=== PATIENT | female | born 1950 | race Caucasian/White ===

== ENCOUNTER 2017-01-03 07:47 | Inpatient (IN) | payer OTHER ==
[~2017-01-03] VITALS: Ht 162.6 cm; Wt 67.1 kg
[~2017-01-03 07:47] MED LIST: BENZONATATE100 M1 PO; HYDROCHLOROTH12.5 M3 PO; IBUPROFEN800 M1 PO; MONTELUKAST SOD10 M1 PO; MOXIFLOXACIN H400 M2 PO; PREDNISONE10 M2 PO; PREDNISONE20 M1 PO; PROAIR HFA8.5 GM INH; PROMETHAZINE-C118 ML PO; SIMVASTATIN10 M1 PO; SPIRIVA18 MCG INH; SYMBICORT 16010.2 GM INH; SYMBICORT 80-10.2 GM INH; ULTRAM(MONOGRAP50 MG PO; VITAMIN D250000 UNIT PO
--- NOTE | 2017-01-03 07:54 | NUR ---
PT TO ED WITH C/O URI, SOB AND COUGH X 6 MONTHS, SAW PMD DR PIKE, AND THEN SAW DR LEMUS FOR A CHECK UP AND WAS SENT FOR CHEST CT "WHICH SHOWED NOTHING, AND HE SAID I'LL SEE YOU IN 6 MONTHS". PER PT TAKING INHALERS PRESCRIBED, AND USING NEBULIZER TWICE DAILY. DENIES FEVERS.
--- NOTE | 2017-01-03 07:57 | ED GENERAL ADULT ---
History of Present Illness General Chief Complaint: Upper Respiratory Sx/Fever Stated Complaint: URI X 1DY HX OF COPD Source: patient Exam Limitations: no limitations Vital Signs & Intake/Output Vital Signs & Intake/Output Vital Signs Date Time Temp Pulse Resp B/P Pulse O2 O2 Flow FiO2 Ox Delivery Rate 01/04 0811 96 Nasal 2.0L Cannula 01/04 0800 Nasal 2.0L Cannula 01/04 0800 98.0 87 20 108/58 95 Nasal 2.0L Cannula 01/04 0000 Nasal 2.0L Cannula 01/03 2357 98.7 105 20 116/52 96 Nasal 2.0L Cannula 01/03 1729 98.5 97 18 117/61 94 01/03 1651 93 Nasal 2.0L Cannula 01/03 1648 Nasal 2.0L Cannula 01/03 1600 Nasal 2.0L Cannula 01/03 1415 94 Nasal 2.0L Cannula 01/03 1337 98.2 102 18 132/82 94 Nasal 2.0L Cannula 01/03 1226 99.8 92 18 110/68 92 Nasal 2.0L Cannula ED Intake and Output 01/04 0000 01/03 1200 Intake Total Output Total 350 Balance -350 Output, Urine 350 Patient 148 lb 149 lb Weight Allergies Coded Allergies: Penicillins (Severe, ANAPHYLAXIS 05/25/16) Reconcile Medications Albuterol Sulfate (Proair Hfa) 8.5 GM HFA.AER.AD 2 PUF INH Q4-6 PRN PRN COPD (Reported) Aspirin (Aspirin*) 81 MG TAB.CHEW 1 TAB PO Q48 BLOOD THINNER (Reported) Azithromycin (Zithromax) 250 MG TABLET 1 TAB PO Q48 COPD (Reported) RESTART ON 01/08/17 Azithromycin 250 MG TABLET 1 TAB PO DAILY COPD EXACERBATION LAST DOSE ON 01/07/17 Budesonide/Formoterol Fumarate (Symbicort 160-4.5 Mcg Inhaler) 10.2 GM HFA.AER.AD 2 PUF INH BID COPD Esomeprazole (Nexium) 40 MG CAPSULE.DR 1 CAP PO DAILY GERD (Reported) Hydrochlorothiazide 12.5 MG CAPSULE 1 CAP PO DAILY HTN (Reported) Montelukast Sodium 10 MG TABLET 1 TAB PO DAILY COPD (Reported) Prednisone 10 MG TABLET 0 PO TAPER COPD On Take 01/05-01/06 50 MG 01/07-2/8 40 MG 01/09-01/10 30 MG 01/11-01/12 20 MG 01/13-01/14 10 MG Then Stop Simvastatin (Simvastatin*) 10 MG TABLET 1 TAB PO QPM HYPERLIPIDEMIA (Reported ) Tiotropium [place] (Spiriva) 18 MCG CAP.W.DEV 1 CAP INH DAILY COPD Triage Note: PT TO ED WITH C/O URI, SOB AND COUGH X 6 MONTHS, SAW PMD DR PIKE, AND THEN SAW DR JACOB FOR A CHECK UP AND WAS SENT FOR CHEST CT "WHICH SHOWED NOTHING, AND HE SAID I'LL SEE YOU IN 6 MONTHS". PER PT TAKING INHALERS PRESCRIBED, AND USING NEBULIZER TWICE DAILY. DENIES FEVERS. Triage Nurses Notes Reviewed? yes Onset: Abrupt Duration: hour(s): Timing: recent history HPI: 01/03/17 8:10 AM 66-year-old female presents to the emergency department complaining of difficulty breathing. The patient states she was in her usual state of health until early this morning when she developed difficulty breathing. She says her oxygen saturation was 77%. She says she has a history of severe COPD. She uses Spiriva. She is on home nebulizer treatments. She is not on prednisone currently. She is on home O2 as needed. She says she recently saw Dr. Jacob last week and had a noncontrast CAT scan that was unremarkable. She denies fever but admits to feeling warm. The onset of symptoms were abrupt, the duration of the symptoms was just today, the severity of the symptoms are significant; as her symptoms required to come to the emergency department for care. She admits to associated difficulty breathing and cough. No chest pain. Past History Travel History Traveled to [place] past 21 day No Medical History Any Pertinent Medical History? see below for history Neurological: NONE EENT: NONE Cardiovascular: hypertension, HLP Respiratory: COPD Gastrointestinal: NONE Hepatic: NONE Renal: NONE Musculoskeletal: NONE Psychiatric: NONE Endocrine: BORDERLINE DIABETIC Blood Disorders: NONE Cancer(s): NONE RN PATIENT SERVICES/Reproductive: NONE History of MRSA: No History of VRE: No History of CDIFF: No Pneumonia Vaccine: 01/05/13 Surgical History Surgical History: non-contributory Psychosocial History Who do you live with Patient/Self Services at Home None What is your primary language Thai Tobacco Use: Quit >30 days ago ETOH Use: denies use Illicit Drug Use: denies illicit drug use Family History Family History, If Any: MOTHER (PULMONARY FIBROSIS). FATHER (RENAL CELL CARCONIMA). Hx Contributory? No Review of Systems Review of Systems Constitutional: Denies: fever. EENTM: Reports: no symptoms. Respiratory: Reports: cough, short of breath, sputum production. Cardiovascular: Denies: chest pain. GI: Reports: no symptoms. Genitourinary: Reports: no symptoms. Musculoskeletal: Reports: no symptoms. Skin: Reports: no symptoms. Neurological/Psychological: Reports: no symptoms. Hematologic/Endocrine: Reports: no symptoms. Immunologic/Allergic: Reports: no symptoms. Physical Exam Physical Exam General Appearance: alert, awake, anxious, moderate distress Head: atraumatic, normal appearance Eyes: Bilateral: normal appearance, PERRL, EOMI. Ears, Nose, Throat: normal ENT inspection Neck: normal inspection Respiratory: decreased breath sounds, respiratory distress Cardiovascular: regular rate/rhythm Gastrointestinal: non-tender Back: normal range of motion Extremities: no edema Neurologic/Psych: no motor/sensory deficits, awake, alert, oriented x 3 Skin: intact, normal color, warm/dry Core Measures ACS in differential dx? No CVA/TIA Diagnosis: No Severe Sepsis Present: No Septic Shock Present: No Progress Differential Diagnoses I considered the following diagnoses in my evaluation of the patient: [ Exacerbation of COPD, pneumonia, bronchitis, pulmonary embolism, congestive heart failure, pneumothorax] Plan of Care: Orders Procedure Date/time Status CBC WITHOUT DIFFERENTIAL 01/04 0600 Complete BASIC ELECTROLYTES PLUS BUN&CR 01/04 0600 Complete Heart Healthy Diet 01/03 D Active RT: Reevaluation 01/03 1416 Active RT: Evaluation 01/03 1416 Active Vital Signs 01/03 1330 Active Teach/Educate 01/03 1330 Active Nutritional Intake, Monitor 01/03 1330 Active Isolation 01/03 1330 Active Intake & Output 01/03 1330 Active Patient Care Conference 01/03 1330 Active Activity/Ambulation 01/03 1330 Active Intake & Output 01/03 1223 Active LOWER RESPIRATORY CULTURE 01/03 1214 Active FingerStick- Glucose 01/03 1156 Active Pathway - chart 01/03 1148 Active Patient Data 01/03 1148 Active CULTURE,URINE 01/03 1148 Active STREP PNEUMO URINARY ANTIGEN 01/03 1148 Active LEGIONELLA URINARY ANTIGEN 01/03 1148 Active BLOOD CULTURE 01/03 1148 Active URINALYSIS 01/03 1148 Complete Admit to inpatient 01/03 1140 Active Vital Signs 01/03 1140 Active Code Status 01/03 1140 Active Patient Data 01/03 1126 Active TRC EVALUATION (GEN) 01/03 UNK Complete THERAPIST ORDERS 01/03 UNK Complete OXYGEN SETUP (GEN) 01/03 UNK Active House Staff 01/03 UNK Active Anticipated Discharge 01/03 UNK Active VTE Mechanical Prophylaxis 01/03 UNK Active Vital Signs 01/03 UNK Complete Current Medications Sig/Loulou Start time Last Medication Dose Stop Time Status Admin Aspirin 81 MG Q48 01/05 1000 AC (Aspirin) Budesonide/ 2 PUF BID 01/03 2200 CAN Formoterol Fumarate (Symbicort) Methylprednisolone 40 MG Q12 01/03 2200 CAN (Solumedrol) Albuterol Sulfate 2 PUF Q4-6 PRN PRN 01/03 1200 AC (Ventolin) Guaifenesin 10 ML Q6P PRN 01/03 1145 AC (Robitussin) Laboratory Tests 01/04/17 0700: Anion Gap 8, Estimated GFR > 60, BUN/Creatinine Ratio 35.0 H, CBC w Diff NO MAN DIFF REQ, RBC 4.07 L, MCV 90.6, MCH 30.7, RDW 13.0, MPV 8.0, Gran % 74.8, Lymphocytes % 14.8 L, Monocytes % 9.7 H, Eosinophils % 0.1, Basophils % 0.6, Absolute Granulocytes 4.2, Absolute Lymphocytes 0.8 L, Absolute Monocytes 0.6, Absolute Eosinophils 0, Absolute Basophils 0, PUBS MCHC 33.9 01/03/17 1216: Urine Color STRAW, Urine Clarity CLEAR, Urine pH 6.0, Ur Specific [place] 1.010, Urine Protein NEG, Urine Ketones NEG, Urine Nitrite NEG, Urine Bilirubin NEG, Urine Urobilinogen 0.2, Ur Leukocyte Esterase NEG, Ur Microscopic EXAM NOT REQUIRED, Urine Hemoglobin NEG, Urine Glucose NEG Microbiology 01/03 1216 URINE ROUT: Legionella Antigen - RES 01/03 1216 URINE ROUT: Streptococcus pneumoniae Antigen (M - RES 01/03 1216 URINE ROUT: Urine Culture - RES 01/03 1216 BLOOD: Blood Culture - RECD 01/03 1214 LOWER RESP: Respiratory Culture - COLB 01/03 1214 LOWER RESP: Gram Stain - COLB 01/03 1213 BLOOD: Blood Culture - RECD Initial ED EKG: nonspecific ST T wave chg Departure Departure Disposition: STILL A PATIENT Condition: Stable Clinical Impression Primary Impression: Asthma exacerbation in COPD Referrals: ARTEMIO PIKE MD (PCP/Family) Departure Forms: Customer Survey General Discharge Information Prescriptions: Current Visit Scripts Azithromycin 1 TAB PO DAILY #3 TAB LAST DOSE ON 01/07/17 Prednisone 0 PO TAPER #30 On Take 01/05-01/06 50 MG 01/07-01/08 40 MG 01/09-01/10 30 MG 01/11-01/12 20 MG 01/13-01/14 10 MG Then Stop Admission Note Spoke With: SRIDEVI COLLINS MD Documentation of Exam: Documentation of any treatments & extenuating circumstances including Concerns Regarding Discharge (functional status, medication knowledge or non-compliance, living conditions, etc.) that warrant an admission rather than observation: The patient needs admission for IV steroids, nebulizer treatments every 4 hours, pulmonary consultation, oxygen therapy] Critical Care Note Critical Care Note Critical Care Time: 30-74 min
--- NOTE | 2017-01-03 08:11 | NUR ---
XRAY AT BEDSIDE AT THIS TIME RESP PAGED FOR TREATMENT
--- NOTE | 2017-01-03 08:22 | NUR ---
IV EST. PT MEDICATED WITH SOLUMEDROL PER ORDER AT THIS TIME. RESP TREATMENT IN PROGRESS.
[2017-01-03 08:29] LABS: ABSOLUTE BASOPHIL COUNT 0 /CUMM (0.0-0.2); ABSOLUTE EOSINOPHIL COUNT 0.1 /CUMM (0.0-0.7); ABSOLUTE GRANULOCYTE CT 3.4 /CUMM (1.4-6.5); ABSOLUTE LYMPH COUNT 0.4 /CUMM (1.2-3.4); ABSOLUTE MONOCYTE COUNT 0.4 /CUMM (0.10-0.60); BASOPHIL % 0.5 % (0.0-2.0); EOSINOPHIL % 1.3 % (0-5); GRANULOCYTE % 78.8 % (42.2-75.2); HEMATOCRIT 38.2 % (37-47); MEAN CORPUSCULAR HGB 31.4 PG (27.0-31.0); MEAN CORPUSCULAR HGB CONC 34.9 G/DL (33.0-37.0); MEAN CORPUSCULAR VOLUME 89.8 FL (81.0-99.0); MEAN PLATELET VOLUME 7.3 FL (7.4-10.4); PLATELET COUNT 154 /CUMM (130-400); RBC DISTRIBUTION WIDTH 12.9 % (11.5-14.5); RED BLOOD CELL CT 4.25 /CUMM (4.20-5.40); WHITE BLOOD CELL COUNT 4.3 /CUMM (4.8-10.8)
--- NOTE | 2017-01-03 08:35 | RADIOLOGY REPORT ---
EXAMINATION: XR PORTABLE CHEST CLINICAL INFORMATION: Shortness of breath. Evaluate for pneumonia. COMPARISON: CT scan of the chest 12/21/2016. TECHNIQUE: AP portable upright view of the chest was obtained. FINDINGS: Lungs are clear and well expanded. There is no focal consolidative disease, pleural effusion, or pneumothorax. The cardiac silhouette and upper mediastinal contours are normal. No acute osseous finding. IMPRESSION: Unremarkable examination. No consolidative disease or effusion.
--- NOTE | 2017-01-03 09:19 | NUR ---
PT STATES SHE IS FEELING SLIGHTLY BETTER AFTER BREATHING TREATMENT BUT STILL NOT "BETTER"
--- NOTE | 2017-01-03 09:20 | NUR ---
DR CHRISTY AT BEDSIDE FOR REEVAL
--- NOTE | 2017-01-03 09:40 | NUR ---
RESP PAGED FOR ANOTHER BREATHING TREATMENT AT THIS TIME.
--- NOTE | 2017-01-03 09:45 | NUR ---
FLU SWAB OBTAIEND AND SENT TO LAB RESP AT BEDSIDE FOR TREATMENT
--- NOTE | 2017-01-03 10:28 | NUR ---
PT 02 SATS 88-89%, PLACED ON 2L NC PER DR CHRISTY REQUEST. PT 02 CURRENTLY 95%.
--- NOTE | 2017-01-03 11:13 | NUR ---
PT REMAINS RESTING ON STRETCHER, SATS REMAINS 95-96% ON 2L NC AT THIS TIME.
--- NOTE | 2017-01-03 11:48 | NUR ---
HEART HEALTHY TRAY ORDERED FOR PT AT THIS TIME.
--- NOTE | 2017-01-03 11:49 | NUR ---
HOUSE STAFF AT BEDSIDE FOR EVAL
[2017-01-03] MEDS ORDERED: ASPIRIN81 M4 PO (11:51)
[2017-01-03] MEDS ORDERED: NEXIUM40 M1 PO (11:52)
[2017-01-03] MEDS ORDERED: ZITHROMAX250 M2 PO (11:52)
--- NOTE | 2017-01-03 11:55 | NUR ---
PHARMACY CALLED FOR MEDICATIONS AT THIS TIMED
--- NOTE | 2017-01-03 12:02 | History & Physical ---
JUAN DE LA TORRE,HAKEEM 01/03/17 1201: General Information and HPI MD Statement: I have seen and personally examined DENNY BLAKELY and documented this H& P. The patient is a 66 year old F who presented with a patient stated chief complaint of [SOB]. Source of Information: patient, old records Exam Limitations: no limitations History of Present Illness: There is a 66-year-old lady with a 50+ pack year smoking history who quit over 4 years ago, a history of COPD/emphysema and is supposed to use 2 L of nasal cannula continuous oxygen at home however noncompliant, history of hypertension, hyperlipidemia, GERD that presented to the emergency room today complaining of acute shortness of breath. While in the emergency room she was found to be hypoxic at 77%. States that over the course of last couple of days she has been sneezing, has had a yellow purulent cough which is her baseline, she used her nebulizer yesterday when she felt short of breath in the evening and went to bed. She woke up this morning with persistent shortness of breath, used her nebulizer treatment again and her inhalers however her symptoms did not alleviated. She subsequently came to the emergency room. As mentioned above in the emergency room she was found to be hypoxic at 77%, she is currently resting comfortably in her hospital bed on 2 L nasal cannula saturating 92%, she has thus far received IV Solu-Medrol, and a couple of breathing treatments. States that her shortness of breath is markedly improved. Allergies/Medications Allergies: Coded Allergies: Penicillins (Severe, ANAPHYLAXIS 05/25/16) Home Med list Albuterol Sulfate (Proair Hfa) 8.5 GM HFA.AER.AD 2 PUF INH Q4-6 PRN PRN COPD (Reported) Aspirin (Aspirin*) 81 MG TAB.CHEW 1 TAB PO Q48 BLOOD THINNER (Reported) Azithromycin (Zithromax) 250 MG TABLET 1 TAB PO Q48 COPD (Reported) Budesonide/Formoterol Fumarate (Symbicort 160-4.5 Mcg Inhaler) 10.2 GM HFA.AER.AD 2 PUF INH BID COPD Esomeprazole (Nexium) 40 MG CAPSULE.DR 1 CAP PO DAILY GERD (Reported) Hydrochlorothiazide 12.5 MG CAPSULE 1 CAP PO DAILY HTN (Reported) Montelukast Sodium 10 MG TABLET 1 TAB PO DAILY COPD (Reported) Simvastatin (Simvastatin*) 10 MG TABLET 1 TAB PO QPM HYPERLIPIDEMIA (Reported ) Tiotropium [place] (Spiriva) 18 MCG CAP.W.DEV 1 CAP INH DAILY COPD Past History Travel History Traveled to [place] past 21 day No Medical History Neurological: NONE EENT: NONE Cardiovascular: hypertension, HLP Respiratory: COPD Gastrointestinal: NONE Hepatic: NONE Renal: NONE Musculoskeletal: NONE Psychiatric: NONE Endocrine: BORDERLINE DIABETIC Blood Disorders: NONE Cancer(s): NONE DIRECTOR OF EVENT MARKETING/Reproductive: NONE History of MRSA: No History of VRE: No History of CDIFF: No Pneumonia Vaccine: 01/05/13 Surgical History Surgical History: non-contributory Past Family/Social History Family History Relations & Conditions if any MOTHER (PULMONARY FIBROSIS). FATHER (RENAL CELL CARCONIMA). Psychosocial History Services at Home: None Smoking Status: Former Smoker (50+ pack yr hx) ETOH Use: denies use Illicit Drug Use: denies illicit drug use Functional Ability ADLs Independent: dressing, eating, toileting, bathing. IADLs Independent: shopping, housework, finances, food prep, telephone, transportation , medication admin. Review of Systems Review of Systems Constitutional: Reports: see HPI. Exam & Diagnostic Data Last 24 Hrs of Vital Signs/I&O Vital Signs Date Time Temp Pulse Resp B/P Pulse O2 O2 Flow FiO2 Ox Delivery Rate 01/03 1019 99.6 102 20 109/73 92 Nasal 2.0L Cannula 01/03 0949 91 01/03 0820 93 01/03 0818 91 01/03 0753 98.2 108 20 138/82 93 Room Air Room Air Intake & Output 01/03 1600 01/03 0800 01/03 0000 Intake Total Output Total Balance Patient 149 lb Weight Physical Exam General Appearance Alert, Oriented X3, Cooperative, No Acute Distress Skin No Rashes, No Breakdown HEENT Atraumatic, PERRLA, EOMI Cardiovascular Regular Rate, Normal S1, Normal S2 Lungs Normal Air Movement, faint wheezing b/l Abdomen Normal Bowel Sounds, Soft, No Tenderness Neurological Normal Speech, Strength at 5/5 X4 Ext, Normal Tone, Sensation Intact, Cranial Nerves 3-12 NL, Reflexes 2+ Extremities No Clubbing, No Cyanosis, No Edema Last 24 Hrs of Labs/[place]: Laboratory Tests 01/03/17 0817: Anion Gap 9, Estimated GFR > 60, BUN/Creatinine Ratio 23.3, Glucose 107 H, Calcium 9.1, Total Bilirubin 0.6, AST 23, ALT 36, Alkaline Phosphatase 73, Troponin I < 0.01, Total Protein 6.8, Albumin 4.1, Globulin 2.7, Albumin/ Globulin Ratio 1.5, D-Dimer 215, CBC w Diff NO MAN DIFF REQ, RBC 4.25, MCV 89.8, MCH 31.4 H, RDW 12.9, MPV 7.3 L, Gran % 78.8 H, Lymphocytes % 10.4 L, Monocytes % 9.0, Eosinophils % 1.3, Basophils % 0.5, Absolute Granulocytes 3.4, Absolute Lymphocytes 0.4 L, Absolute Monocytes 0.4, Absolute Eosinophils 0.1, Absolute Basophils 0, PUBS MCHC 34.9 Microbiology 01/03 114 URINE ROUT: Legionella Antigen - ORD 01/03 114 URINE ROUT: Streptococcus pneumoniae Antigen (M - ORD 01/03 114 URINE ROUT: Urine Culture - ORD 01/03 1148 BLOOD: Blood Culture - ORD 01/03 1148 BLOOD: Blood Culture - ORD Diagnostic Data EKG Results Rate 103, AL 176, QRS 82, QTC 451 Sinus tachycardia, no significant changes in EKG since prior tracing CXR Results PATIENT: DENNY BLAKELY PRESENT AGE: 66 PATIENT ACCOUNT NO: [id number] : 52 LOCATION: [facility] ORDERING PHYSICIAN: VIJAYA CHRISTY DO SERVICE DATE: 01/03/17 EXAM TYPE: RAD - XRY-PORTABLE CHEST XRAY EXAMINATION: XR PORTABLE CHEST CLINICAL INFORMATION: Shortness of breath. Evaluate for pneumonia. COMPARISON: CT scan of the chest 12/21/2016. TECHNIQUE: AP portable upright view of the chest was obtained. FINDINGS: Lungs are clear and well expanded. There is no focal consolidative disease, pleural effusion, or pneumothorax. The cardiac silhouette and upper mediastinal contours are normal. No acute osseous finding. IMPRESSION: Unremarkable examination. No consolidative disease or effusion. DICTATED BY: PAT ACKERMAN MD DATE/TIME DICTATED:01/03/17817 WORKFORCE ADVISOR:DEUCE DATE/TIME TRANSCRIBED:01/03/17817 CONFIDENTIAL, DO NOT COPY WITHOUT APPROPRIATE AUTHORIZATION. <Electronically signed in Other Vendor System> SIGNED BY: MEKA DE LA TORRE,PAT Sanchez 01/03 0844 Assessment/Plan Assessment: In summary, this is a 66-year-old lady with a past medical history significant for COPD, 2 L home oxygen dependent however noncompliant with this, hypertension , hyperlipidemia, GERD that presented to the emergency room with acute shortness of breath and found to be in hypoxic respiratory failure with initial oxygen saturation 77%. Since her admission to the emergency room she is received IV steroids and nebulizer treatment with rapid alleviation of her symptoms. She'll be admitted to general medicine floor for the same. Assessment- 1. Acute hypoxic respiratory failure, likely secondary to COPD exacerbation, oxygen saturation 77% on presentation to the ER 2. Dyspnea, secondary to COPD exacerbation 3. Hypertension 4. Hyperlipidemia 5. GERD Plan- Admit to general med Vitals per protocol Titrate supplemental oxygen to keep oxygen saturation between 90 and 93% TRC evaluation and nebs IV Solu-Medrol 40 twice a day By mouth azithromycin 5 days Panculture Continue montelukast Continue Symbicort and Spiriva Continue all her other home meds Heart healthy diet Will consider pulmonary consult, Parth Jacob MD is her principal ios developer Mild pain when necessary pathway DVT prophylaxis being addressed with subcutaneous heparin Full code As Ranked By This Provider Problem List: 1. COPD exacerbation 2. Hypoxia 3. emphysema 4. Essential hypertension Core Measures/Miscellaneous Acute Coronary Syndrome ACS Diagnosis: No Cerebrovascular Accident CVA/TIA Diagnosis: No Congestive Heart Failure CHF Diagnosis: No Venous Thromboembolism VTE Risk Factors: Age > 40, Smoking VTE Prophylaxis Ordered Inpt: Pharm- Heparin No Mech VTE prophylaxis d/t: No contraindications No VTE Pharm Prophylaxis d/t: VTE low risk VTE Diagnosis: No VTE Type: NONE VTE Confirmed by (Test): NONE Severe Sepsis Severe Sepsis Present: No Septic Shock Septic Shock Present: No Miscellaneous Documentation Attending Case Discussed With: Dr. Burch Primary Care Physician: ARTEMIO PIKE MD Patient sees these Specialists Dr. Jacob Level of Patient Care: General Medicine Resident Review Statement Resident Statement: examined this patient, discussed with internet merchant JOSE BURCH MD 01/03/17 1420: Attending Review Statement Attending Statement Attending MD Statement: examined this patient, discuss w/resident/PA/WOMEN'S SOCCER COACH, agreed w/resident/PA/WOMEN'S SOCCER COACH, reviewed EMR data (avail), discussed with nursing, discussed with case mgmt, reviewed images, amended to note Attending Assessment/Plan: 66-year-old female with past medical history significant for COPD on when necessary oxygen dependent at 2 L, hypertension, hyperlipidemia who is presenting with increasing shortness of breath. Symptoms started yesterday with some chills. She has been having more trouble breathing both at rest and on exertion. She is coughing but denies any change in the color of her sputum. She denies any fevers. 2 weeks ago she had a cold. In the emergency room patient was found to be hypoxic and required oxygen. She required nebulizer treatments as well as Solu-Medrol. She denies any sick exposures. She is up-to -date with her pneumonia as well as flu vaccines. Vital Signs Date Time Temp Pulse Resp B/P Pulse O2 O2 Flow FiO2 Ox Delivery Rate 01/03 1337 98.2 102 18 132/82 94 Nasal 2.0L Cannula 01/03 1226 99.8 92 18 110/68 92 Nasal 2.0L Cannula 01/03 1019 99.6 102 20 109/73 92 Nasal 2.0L Cannula 01/03 0949 91 01/03 0820 93 01/03 0818 91 01/03 0753 98.2 108 20 138/82 93 Room Air Room Air on exam; aox3, nad. cv; s1, s2, rrr. resp; decreased bs b/l abd; soft, nt, bs+ ext; no edema. Laboratory Tests 01/03 01/03 1216 0817 Chemistry Sodium (137 - 145 mmol/L) 137 Potassium (3.5 - 5.1 mmol/L) 3.9 Chloride (98 - 107 mmol/L) 102 Carbon Dioxide (22 - 30 mmol/L) 26 Anion Gap (5 - 16) 9 BUN (7 - 17 mg/dL) 14 Creatinine (0.5 - 1.0 mg/dL) 0.6 Estimated GFR (>60 ml/min) > 60 BUN/Creatinine Ratio (7 - 25 %) 23.3 Glucose (65 - 99 mg/dL) 107 H Calcium (8.4 - 10.2 mg/dL) 9.1 Total Bilirubin (0.2 - 1.3 mg/dL) 0.6 AST (14 - 36 U/L) 23 ALT (9 - 52 U/L) 36 Alkaline Phosphatase (<127 U/L) 73 Troponin I (< 0.11 ng/ml) < 0.01 Total Protein (6.3 - 8.2 g/dL) 6.8 Albumin (3.5 - 5.0 g/dL) 4.1 Globulin (1.9 - 4.2 gm/dL) 2.7 Albumin/Globulin Ratio (1.1 - 2.2 %) 1.5 Coagulation D-Dimer (70 - 232 ng/ml) 215 Hematology CBC w Diff NO MAN DIFF REQ WBC (4.8 - 10.8 /CUMM) 4.3 L RBC (4.20 - 5.40 /CUMM) 4.25 Hgb (12.0 - 16.0 G/DL) 13.3 Hct (37 - 47 %) 38.2 MCV (81.0 - 99.0 FL) 89.8 MCH (27.0 - 31.0 PG) 31.4 H RDW (11.5 - 14.5 %) 12.9 Plt Count (130 - 400 /CUMM) 154 MPV (7.4 - 10.4 FL) 7.3 L Gran % (42.2 - 75.2 %) 78.8 H Lymphocytes % (20.5 - 51.1 %) 10.4 L Monocytes % (1.7 - 9.3 %) 9.0 Eosinophils % (0 - 5 %) 1.3 Basophils % (0.0 - 2.0 %) 0.5 Absolute Granulocytes (1.4 - 6.5 /CUMM) 3.4 Absolute Lymphocytes (1.2 - 3.4 /CUMM) 0.4 L Absolute Monocytes (0.10 - 0.60 /CUMM) 0.4 Absolute Eosinophils (0.0 - 0.7 /CUMM) 0.1 Absolute Basophils (0.0 - 0.2 /CUMM) 0 PUBS MCHC (33.0 - 37.0 G/DL) 34.9 Urines Urine Color (YEL,AMB,STR) STRAW Urine Clarity (CLEAR) CLEAR Urine pH (5.0 - 8.0) 6.0 Ur Specific [place] (1.001 - 1.035) 1.010 Urine Protein (NEG,<30 MG/DL) NEG Urine Ketones (NEG) NEG Urine Nitrite (NEG) NEG Urine Bilirubin (NEG) NEG Urine Urobilinogen (0.1 - 1.0 EU/dl) 0.2 Ur Leukocyte Esterase (NEG) NEG Ur Microscopic EXAM NOT REQUIRED Urine Hemoglobin (NEG) NEG Urine Glucose (N MG/DL) NEG cxr: no infiltrate. EKG>>> Sinus tach. A/P; 66-year-old female with past medical history significant for COPD on when necessary oxygen dependent at 2 L, hypertension, hyperlipidemia, admitted with acute exacerbation of her COPD. Patient admitted to medicine. We'll start the patient on steroids as well as azithromycin. Patient should be getting TRC nebs. She should be on scheduled [id number] oxygen. We'll continue her home medications which she takes for hypertension or hyperlipidemia. DVT prophylaxis: Heparin subcutaneous. Patient is a full code
--- NOTE | 2017-01-03 12:11 | NUR ---
PT MEDICATED WITH PO ZITHROMAX PER ORDER AT THIS TIME. PT IN BATHROOM TO PROVIDE URINE SPECIMEN
--- NOTE | 2017-01-03 12:17 | NUR ---
1st set of blood cultures drawn and sent to lab.
--- NOTE | 2017-01-03 12:22 | NUR ---
SECOND SET OF BLOOD CULTURES DRAWN AND SENT TO LAB
--- NOTE | 2017-01-03 12:37 | NUR ---
PT ADMITTED TO ROOM 210-2
--- NOTE | 2017-01-03 12:40 | NUR ---
PT PROIVDED WITH LUNCH TRAY AT THIS TIME.
--- NOTE | 2017-01-03 12:47 | NUR ---
REPORT GIVEN TO VILMA COVARRUBIAS WILL GO TO 210-2 [facility] CALLED FOR TRANSPORT
--- NOTE | 2017-01-03 13:23 | Cons- Pulmonary ---
General Information and HPI Consulting Request Date of Consult: 01/03/17 Requested By: ed History of Present Illness: There is a 66-year-old lady with a 50+ pack year smoking history who quit over 4 years ago, a history of COPD/emphysema and is supposed to use 2 L of nasal cannula continuous oxygen at home however noncompliant, history of hypertension, hyperlipidemia, GERD that presented to the emergency room today complaining of acute shortness of breath. While in the emergency room she was found to be hypoxic at 77%. States that over the course of last couple of days she has been sneezing, has had a yellow purulent cough which is her baseline, she used her nebulizer yesterday when she felt short of breath in the evening and went to bed. She woke up this morning with persistent shortness of breath, used her nebulizer treatment again and her inhalers however her symptoms did not alleviated. She subsequently came to the emergency room. As mentioned above in the emergency room she was found to be hypoxic at 77%, she is currently resting comfortably in her hospital bed on 2 L nasal cannula saturating 92%, she has thus far received IV Solu-Medrol, and a couple of breathing treatments. States that her shortness of breath is markedly improved. Allergies/Medications Allergies: Coded Allergies: Penicillins (Severe, ANAPHYLAXIS 05/25/16) Home Med List: Albuterol Sulfate (Proair Hfa) 8.5 GM HFA.AER.AD 2 PUF INH Q4-6 PRN PRN COPD (Reported) Aspirin (Aspirin*) 81 MG TAB.CHEW 1 TAB PO Q48 BLOOD THINNER (Reported) Azithromycin (Zithromax) 250 MG TABLET 1 TAB PO Q48 COPD (Reported) Budesonide/Formoterol Fumarate (Symbicort 160-4.5 Mcg Inhaler) 10.2 GM HFA.AER.AD 2 PUF INH BID COPD Esomeprazole (Nexium) 40 MG CAPSULE.DR 1 CAP PO DAILY GERD (Reported) Hydrochlorothiazide 12.5 MG CAPSULE 1 CAP PO DAILY HTN (Reported) Montelukast Sodium 10 MG TABLET 1 TAB PO DAILY COPD (Reported) Simvastatin (Simvastatin*) 10 MG TABLET 1 TAB PO QPM HYPERLIPIDEMIA (Reported ) Tiotropium [place] (Spiriva) 18 MCG CAP.W.DEV 1 CAP INH DAILY COPD Review of Systems Review of Systems Constitutional: Reports: see HPI. Past History Travel History Traveled to [place] past 21 day No Medical History Neurological: NONE EENT: NONE Cardiovascular: hypertension, HLP Respiratory: COPD Gastrointestinal: NONE Hepatic: NONE Renal: NONE Musculoskeletal: NONE Psychiatric: NONE Endocrine: BORDERLINE DIABETIC Blood Disorders: NONE Cancer(s): NONE STOCK LETTERER/Reproductive: NONE Surgical History Surgical History: non-contributory Family History Relations & Conditions If Any: MOTHER (PULMONARY FIBROSIS). FATHER (RENAL CELL CARCONIMA). Psychosocial History Services at Home: None Smoking Status: Former Smoker (50+ pack yr hx) ETOH Use: denies use Illicit Drug Use: denies illicit drug use Functional Ability ADLs Independent: dressing, eating, toileting, bathing. IADLs Independent: shopping, housework, finances, food prep, telephone, transportation , medication admin. Exam & Diagnostic Data Last 24 Hrs of Vital Signs/I&O Vital Signs Date Time Temp Pulse Resp B/P Pulse O2 O2 Flow FiO2 Ox Delivery Rate 01/03 1226 99.8 92 18 110/68 92 Nasal 2.0L Cannula 01/03 1019 99.6 102 20 109/73 92 Nasal 2.0L Cannula 01/03 0949 91 01/03 0820 93 01/03 0818 91 01/03 0753 98.2 108 20 138/82 93 Room Air Room Air Intake & Output 01/03 1600 01/03 0800 01/03 0000 Intake Total Output Total 350 Balance -350 Output, Urine 350 Patient 149 lb Weight Last 48 Hrs of Labs/[place]: Laboratory Tests 01/03/17 1216: Urine Color STRAW, Urine Clarity CLEAR, Urine pH 6.0, Ur Specific [place] 1.010, Urine Protein NEG, Urine Ketones NEG, Urine Nitrite NEG, Urine Bilirubin NEG, Urine Urobilinogen 0.2, Ur Leukocyte Esterase NEG, Ur Microscopic EXAM NOT REQUIRED, Urine Hemoglobin NEG, Urine Glucose NEG 01/03/17 0817: Anion Gap 9, Estimated GFR > 60, BUN/Creatinine Ratio 23.3, Glucose 107 H, Calcium 9.1, Total Bilirubin 0.6, AST 23, ALT 36, Alkaline Phosphatase 73, Troponin I < 0.01, Total Protein 6.8, Albumin 4.1, Globulin 2.7, Albumin/ Globulin Ratio 1.5, D-Dimer 215, CBC w Diff NO MAN DIFF REQ, RBC 4.25, MCV 89.8, MCH 31.4 H, RDW 12.9, MPV 7.3 L, Gran % 78.8 H, Lymphocytes % 10.4 L, Monocytes % 9.0, Eosinophils % 1.3, Basophils % 0.5, Absolute Granulocytes 3.4, Absolute Lymphocytes 0.4 L, Absolute Monocytes 0.4, Absolute Eosinophils 0.1, Absolute Basophils 0, PUBS MCHC 34.9 Assessment/Plan Impression/Plan: Physical Exam General Appearance Alert, Oriented X3, Cooperative, No Acute Distress Skin No Rashes, No Breakdown HEENT Atraumatic, PERRLA, EOMI Cardiovascular Regular Rate, Normal S1, Normal S2 Lungs Normal Air Movement, faint wheezing b/l Abdomen Normal Bowel Sounds, Soft, No Tenderness Neurological Normal Speech, Strength at 5/5 X4 Ext, Normal Tone, Sensation Intact, Cranial Nerves 3-12 NL, Reflexes 2+ Extremities No Clubbing, No Cyanosis, No Edema SIGNIFICANT DATA Chest x-ray was unremarkable. No consolidation. CT scan of the chest done recently did show that she has severe emphysema. No suspicious lung nodules scattered mucous seen in the airway with significant atherosclerosis of the coronary arteries, fatty liver, previous patchy groundglass opacities had resolved. Previous CTA of the chest was unremarkable for any pulmonary embolism. Her blood work was reviewed as noted. White count 4.3 with no significant left shift. Her d-dimer was normal. Previous ABG did not reveal hypercarbia. IMPRESSION This is a lady with very end-stage COPD with more than [id number] smoking history. Recently he has quit, hypertension, B12 deficiency, asthmatic component to her obstructive lung disease, hyperlipidemia, previous interstitial opacity bilaterally most likely related to pneumonia which is now resolved, comes in with acute onset of shortness of breath, wheezing, sputum production, consistent with acute COPD exacerbation. Issues include * Acute COPD exacerbation. * Severe emphysema. * Previous history of significant smoking and no evidence of malignancy in the recent CAT scan. * No evidence suggestive of pulmonary embolism. * Probable viral bronchitis. No evidence suggestive of acute bacterial infection. * Hypertension, hyperlipidemia, GERD, stable. RECOMMENDATION * Continue [id number] nebulizer. * Keep the head of bed elevated. * Continue her outpatient inhalers. Patient Symbicort could be held temporarily while she is here. * Switch her to by mouth prednisone 60 mg tomorrow. * Continue antibiotics with azithromycin for 5 day duration. * Sputum culture if any. * Keep the head of bed elevated. * Ambulate. * Try to wean the oxygen off if possible. * Check C BC tomorrow. * Keep the O2 sat 92-93%. Patient seems to have improved significantly since she has been in the emergency room Consult Acknowledgment - Thank you for your consult request.
[2017-01-03 13:37] VITALS: BP 132/82
--- NOTE | 2017-01-03 14:27 | Admission Certification ---
Admission Certification Certification Statement - As attending physician, I certify that at the time of - admission, based on clinical presentation, severity of - symptoms, need for further diagnostic testing and - therapeutic interventions, and risk of adverse outcomes - without in-hospital treatment, in my clinical assessment, - this patient requires an acute hospital stay for a minimum - of two nights or longer. I have also considered psychsocial - factors such as support system, advanced age, financial - issues, cognitive issues, and failed out-patient treatments, - past re-admission history, safety of patient, and lack of - compliance as applicable. Specific rationale supporting this admission is: Patient admitted with acute COPD exacerbation. Need steroids and azithromycin as well as TRC nebs.
--- NOTE | 2017-01-03 14:49 | Patient Discharge Instructions ---
Discharge Instructions General Discharge Information You were seen/treated for: COPD EXACERBATION SHORTNESS OF BREATH Special Instructions: F/U WITH YOUR PCP WITHIN 1 WEEK OF D/C F/U WITH YOUR MUSIC INSTRUCTOR WITHIN 1 WEEK OF DISCHARGE Diet Continue normal diet: Yes Recommended Diet: Heart Healthy Acute Coronary Syndrome Inclusion Criteria At DC or during hospital stay patient has or had the following: ACS DIAGNOSIS No Discharge Core Measures Meds if any: Prescribed or Continued at Discharge Meds if any: NOT Prescribed or Continued at Discharge Congestive Heart Failure Inclusion Criteria At DC or during hospital stay patient has or had the following: CHF DIAGNOSIS No Discharge Core Measures Meds if any: Prescribed or Continued at Discharge Meds if any: NOT Prescribed or Continued at Discharge Cerebrovascular accident Inclusion Criteria At DC or during hospital stay patient has or had the following: CVA/TIA Diagnosis No Discharge Core Measures Meds if any: Prescribed or Continued at Discharge Meds if any: NOT Prescribed or Continued at Discharge Venous thromboembolism Inclusion Criteria VTE Diagnosis No VTE Type NONE VTE Confirmed by (Test) NONE Discharge Core Measures - Per Current guidelines, there needs to be overlap - treatment for the first 5 days of Warfarin therapy. - If discharged on Warfarin prior to 5 days of - overlap therapy, the patient will need to be - assessed for post discharge needs including - *Post discharge parental anticoagulation - *Warfarin and/or parental anticoagulation education - *Follow up date to check INR post discharge At least 5 days overlap therapy as Inpatient No Meds if any: Prescribed or Continued at Discharge Note: Overlap Therapy is Warfarin and Anticoagulant Meds if any: NOT Prescribed or Continued at Discharge
[2017-01-03] MEDS ORDERED: AZITHROMYCIN250 M1 PO (14:53)
[2017-01-03] MEDS ORDERED: PREDNISONE10 M2 PO (14:53)
--- NOTE | 2017-01-03 17:01 | NUR ---
ADMISSION NOTE: PATIENT ARRIVED TO ROM WITH DISTRIBUTION A/OX3, 2L NC, IV SITE INTACT, AMBULATING INDEPENDENTLY, BP132/82, PULSE 103, T 98.2, R 18, O2 SAT 92%. ORIENTED TO ROOM, RESTING IN BED IN LOW, LOCKED POSITION.
[2017-01-03 17:29] VITALS: BP 117/61
[2017-01-03 23:57] VITALS: BP 116/52
--- NOTE | 2017-01-04 00:39 | NUR ---
ALERT AND ORIENTED X 3. VITAL SIGNS STABLE. ON 2L O2 VIA NASAL CANNULA NO DISCOMFORT NOTED AT THIS TIME. SKIN C/D/I. EXERTIONAL SHORTNESS OF BREATH NOTED. WILL CONTINUE TO MONITOR
[2017-01-04 08:00] VITALS: BP 108/58
--- NOTE | 2017-01-04 08:07 | PN- Housestaff ---
RICHARD DE LA TORRE,FABIANA 01/04/17 0807: Subjective Follow-up For: AECOPD Subjective: Pt is seen and examined at bedside. Pt reports improvement in her shortness of breath, but still endorses some cough and rhinorrhea. Pt denies any chest pain, palpitation,dizziness,fever/chills,nausea/vomiting,abdominal pain or dysuria. When asked wether she feels ready to go home,pt states that she feels much better compared to when she was admitted, however, she still feels that she is not ready to go home, especially when she has to climb two flight of stairs. Review of Systems Constitutional: Denies: see HPI. Objective Last 24 Hrs of Vital Signs/I&O Vital Signs Date Time Temp Pulse Resp B/P Pulse O2 O2 Flow FiO2 Ox Delivery Rate 01/04 1647 96 Nasal 2.0L Cannula 01/04 1541 97.9 81 22 116/72 95 Nasal 2.0L Cannula 01/04 0811 96 Nasal 2.0L Cannula 01/04 0800 Nasal 2.0L Cannula 01/04 0800 98.0 87 20 108/58 95 Nasal 2.0L Cannula 01/04 0000 Nasal 2.0L Cannula 01/03 2357 98.7 105 20 116/52 96 Nasal 2.0L Cannula 01/03 1729 98.5 97 18 117/61 94 Intake & Output 01/04 1600 01/04 0800 01/04 0000 Intake Total 1000 100 Output Total 400 Balance 1000 -300 Intake, Oral 1000 100 Output, Urine 400 Physical Exam General Appearance: Alert, Oriented X3, Cooperative Other Physical Findings: Skin No Rashes, No Breakdown HEENT Atraumatic, PERRLA, EOMI Cardiovascular Regular Rate, Normal S1, Normal S2 Lungs very mild wheezing b/l, otherwise normal airway movement. Abdomen Normal Bowel Sounds, Soft, No Tenderness Extremities No Clubbing, No Cyanosis, No Edema Assessment/Plan Assessment: Impression This is a 66-year-old lady with a significant history of end-stage COPD and prior social history of 50 pack per year cigarette smoking, history of interstitial bilateral opacity,presents with signs and symptoms suggestive of a AECOPD #Acute hypoxic respiratory failure Likely secondary to acute exacerbation of COPD O2 supplementation to keep levels above 90% Attempt to wean off O2 tonight in anticipation of discharge tomorrow #AECOPD Will continue TRC nebs Switched Solu-Medrol IV to this and 60 mg within an 8 day taper (patient will continue this on outpatient basis) Will continue azithromycin treatment #History of chronic disease Hypertension, hyperlipidemia, GERD: Wi'll continue home meds Problem List: 1. copd exacerbation Pain Ratin Pain Location: none Pain Goal: Remain pain free Pain Plan: none Tomorrow's Labs & Rationales: none JOSE BA MD 01/04/17 1338: Attending MD Review Statement Attending Statement Attending MD Statement: examined this patient, discuss w/resident/PA/EDUCATION ADMINISTRATOR, agreed w/resident/PA/EDUCATION ADMINISTRATOR, reviewed EMR data (avail), discussed with nursing, reviewed images, amended to note Attending Assessment/Plan: Patient seen and examined, feeling slightly better than yesterday but still not back to baseline. Still feels short of breath. Vital Signs Date Time Temp Pulse Resp B/P Pulse O2 O2 Flow FiO2 Ox Delivery Rate 01/04 0811 96 Nasal 2.0L Cannula 01/04 0800 Nasal 2.0L Cannula 01/04 0800 98.0 87 20 108/58 95 Nasal 2.0L Cannula 01/04 0000 Nasal 2.0L Cannula 01/03 2357 98.7 105 20 116/52 96 Nasal 2.0L Cannula 01/03 1729 98.5 97 18 117/61 94 01/03 1651 93 Nasal 2.0L Cannula 01/03 1648 Nasal 2.0L Cannula 01/03 1600 Nasal 2.0L Cannula 01/03 1415 94 Nasal 2.0L Cannula on exam aox3, nad. cv; s1,s2, rrr. resp; decreased bs overall. abd; soft, nt, bs+ ext; no edema. Laboratory Tests 01/04 0700 Chemistry Sodium (137 - 145 mmol/L) 138 Potassium (3.5 - 5.1 mmol/L) 3.8 Chloride (98 - 107 mmol/L) 99 Carbon Dioxide (22 - 30 mmol/L) 31 H Anion Gap (5 - 16) 8 BUN (7 - 17 mg/dL) 21 H Creatinine (0.5 - 1.0 mg/dL) 0.6 Estimated GFR (>60 ml/min) > 60 BUN/Creatinine Ratio (7 - 25 %) 35.0 H Hematology CBC w Diff NO MAN DIFF REQ WBC (4.8 - 10.8 /CUMM) 5.7 RBC (4.20 - 5.40 /CUMM) 4.07 L Hgb (12.0 - 16.0 G/DL) 12.5 Hct (37 - 47 %) 36.9 L MCV (81.0 - 99.0 FL) 90.6 MCH (27.0 - 31.0 PG) 30.7 RDW (11.5 - 14.5 %) 13.0 Plt Count (130 - 400 /CUMM) 169 MPV (7.4 - 10.4 FL) 8.0 Gran % (42.2 - 75.2 %) 74.8 Lymphocytes % (20.5 - 51.1 %) 14.8 L Monocytes % (1.7 - 9.3 %) 9.7 H Eosinophils % (0 - 5 %) 0.1 Basophils % (0.0 - 2.0 %) 0.6 Absolute Granulocytes (1.4 - 6.5 /CUMM) 4.2 Absolute Lymphocytes (1.2 - 3.4 /CUMM) 0.8 L Absolute Monocytes (0.10 - 0.60 /CUMM) 0.6 Absolute Eosinophils (0.0 - 0.7 /CUMM) 0 Absolute Basophils (0.0 - 0.2 /CUMM) 0 PUBS MCHC (33.0 - 37.0 G/DL) 33.9 A/P; 66-year-old female with past medical history significant for COPD on when necessary oxygen dependent at 2 L, hypertension, hyperlipidemia, admitted with acute exacerbation of her COPD. Continue present dose of steroids. Continue present dose of azithromycin. Continue TRC nebs. Continue all other current home medications. DVT prophylaxis: Heparin subcutaneous. Patient was encouraged to ambulate. If she has symptomatic improvement, likely will be discharged home tomorrow.
[2017-01-04 08:27] LABS: ABSOLUTE BASOPHIL COUNT 0 /CUMM (0.0-0.2); ABSOLUTE EOSINOPHIL COUNT 0 /CUMM (0.0-0.7); ABSOLUTE GRANULOCYTE CT 4.2 /CUMM (1.4-6.5); ABSOLUTE LYMPH COUNT 0.8 /CUMM (1.2-3.4); ABSOLUTE MONOCYTE COUNT 0.6 /CUMM (0.10-0.60); BASOPHIL % 0.6 % (0.0-2.0); EOSINOPHIL % 0.1 % (0-5); GRANULOCYTE % 74.8 % (42.2-75.2); HEMATOCRIT 36.9 % (37-47); MEAN CORPUSCULAR HGB 30.7 PG (27.0-31.0); MEAN CORPUSCULAR HGB CONC 33.9 G/DL (33.0-37.0); MEAN CORPUSCULAR VOLUME 90.6 FL (81.0-99.0); PLATELET COUNT 169 /CUMM (130-400); RED BLOOD CELL CT 4.07 /CUMM (4.20-5.40); WHITE BLOOD CELL COUNT 5.7 /CUMM (4.8-10.8)
--- NOTE | 2017-01-04 14:06 | PN- Pulmonary ---
Subjective HPI/Critical Care Issues: Pt reports improvement in her shortness of breath, but still endorses some cough and rhinorrhea. Pt denies any chest pain,palpitation,dizziness,fever/ chills,nausea/vomiting,abdominal pain or dysuria. When asked wether she feels ready to go home,pt states that she feels much better compared to when she was admitted, however, she still feels that she is not ready to go home, especially when she has to climb two flight of stairs. Objective Current Medications: Current Medications Sig/[place] Start time Last Medication Dose Route Stop Time Status Admin Acetaminophen 650 MG Q6P PRN 01/03 1145 AC 01/03 PO 2016 Albuterol Sulfate 3 ML EVERY 4 HRS/AWAKE 01/03 1700 AC 01/04 INH 1117 Albuterol Sulfate 2 PUF Q4-6 PRN PRN 01/03 1200 AC INH Aspirin 81 MG Q48 01/05 1000 AC PO Atorvastatin Calcium 10 MG 1700 01/03 1700 AC 01/03 PO 1752 Azithromycin 250 MG DAILY 01/03 1147 AC 01/04 PO 0951 Guaifenesin 10 ML Q6P PRN 01/03 1145 AC PO Heparin Sodium 5,000 UNIT Q8 01/03 1400 AC 01/04 (Porcine) SC 0518 Hydrochlorothiazide 12.5 MG DAILY 01/04 1000 AC 01/04 PO 0951 Montelukast Sodium 10 MG DAILY 01/04 1000 AC 01/04 PO 0951 Omeprazole 40 MG DAILY AC 01/04 0700 AC 01/04 PO 0518 Prednisone 60 MG DAILY 01/04 1000 AC 01/04 PO 0951 Tiotropium [place] 1 PUF DAILY 01/03 1200 AC 01/04 INH 0952 Laboratory Tests 01/04 01/03 0700 1216 Chemistry Sodium (137 - 145 mmol/L) 138 Potassium (3.5 - 5.1 mmol/L) 3.8 Chloride (98 - 107 mmol/L) 99 Carbon Dioxide (22 - 30 mmol/L) 31 H Anion Gap (5 - 16) 8 BUN (7 - 17 mg/dL) 21 H Creatinine (0.5 - 1.0 mg/dL) 0.6 Estimated GFR (>60 ml/min) > 60 BUN/Creatinine Ratio (7 - 25 %) 35.0 H Hematology CBC w Diff NO MAN DIFF REQ WBC (4.8 - 10.8 /CUMM) 5.7 RBC (4.20 - 5.40 /CUMM) 4.07 L Hgb (12.0 - 16.0 G/DL) 12.5 Hct (37 - 47 %) 36.9 L MCV (81.0 - 99.0 FL) 90.6 MCH (27.0 - 31.0 PG) 30.7 RDW (11.5 - 14.5 %) 13.0 Plt Count (130 - 400 /CUMM) 169 MPV (7.4 - 10.4 FL) 8.0 Gran % (42.2 - 75.2 %) 74.8 Lymphocytes % (20.5 - 51.1 %) 14.8 L Monocytes % (1.7 - 9.3 %) 9.7 H Eosinophils % (0 - 5 %) 0.1 Basophils % (0.0 - 2.0 %) 0.6 Absolute Granulocytes (1.4 - 6.5 /CUMM) 4.2 Absolute Lymphocytes (1.2 - 3.4 /CUMM) 0.8 L Absolute Monocytes (0.10 - 0.60 /CUMM) 0.6 Absolute Eosinophils (0.0 - 0.7 /CUMM) 0 Absolute Basophils (0.0 - 0.2 /CUMM) 0 PUBS MCHC (33.0 - 37.0 G/DL) 33.9 Urines Urine Color (YEL,AMB,STR) STRAW Urine Clarity (CLEAR) CLEAR Urine pH (5.0 - 8.0) 6.0 Ur Specific [place] (1.001 - 1.035) 1.010 Urine Protein (NEG,<30 MG/DL) NEG Urine Ketones (NEG) NEG Urine Nitrite (NEG) NEG Urine Bilirubin (NEG) NEG Urine Urobilinogen (0.1 - 1.0 EU/dl) 0.2 Ur Leukocyte Esterase (NEG) NEG Ur Microscopic EXAM NOT REQUIRED Urine Hemoglobin (NEG) NEG Urine Glucose (N MG/DL) NEG 01/03 0817 Chemistry Sodium (137 - 145 mmol/L) 137 Potassium (3.5 - 5.1 mmol/L) 3.9 Chloride (98 - 107 mmol/L) 102 Carbon Dioxide (22 - 30 mmol/L) 26 Anion Gap (5 - 16) 9 BUN (7 - 17 mg/dL) 14 Creatinine (0.5 - 1.0 mg/dL) 0.6 Estimated GFR (>60 ml/min) > 60 BUN/Creatinine Ratio (7 - 25 %) 23.3 Glucose (65 - 99 mg/dL) 107 H Calcium (8.4 - 10.2 mg/dL) 9.1 Total Bilirubin (0.2 - 1.3 mg/dL) 0.6 AST (14 - 36 U/L) 23 ALT (9 - 52 U/L) 36 Alkaline Phosphatase (<127 U/L) 73 Troponin I (< 0.11 ng/ml) < 0.01 Total Protein (6.3 - 8.2 g/dL) 6.8 Albumin (3.5 - 5.0 g/dL) 4.1 Globulin (1.9 - 4.2 gm/dL) 2.7 Albumin/Globulin Ratio (1.1 - 2.2 %) 1.5 Coagulation D-Dimer (70 - 232 ng/ml) 215 Hematology CBC w Diff NO MAN DIFF REQ WBC (4.8 - 10.8 /CUMM) 4.3 L RBC (4.20 - 5.40 /CUMM) 4.25 Hgb (12.0 - 16.0 G/DL) 13.3 Hct (37 - 47 %) 38.2 MCV (81.0 - 99.0 FL) 89.8 MCH (27.0 - 31.0 PG) 31.4 H RDW (11.5 - 14.5 %) 12.9 Plt Count (130 - 400 /CUMM) 154 MPV (7.4 - 10.4 FL) 7.3 L Gran % (42.2 - 75.2 %) 78.8 H Lymphocytes % (20.5 - 51.1 %) 10.4 L Monocytes % (1.7 - 9.3 %) 9.0 Eosinophils % (0 - 5 %) 1.3 Basophils % (0.0 - 2.0 %) 0.5 Absolute Granulocytes (1.4 - 6.5 /CUMM) 3.4 Absolute Lymphocytes (1.2 - 3.4 /CUMM) 0.4 L Absolute Monocytes (0.10 - 0.60 /CUMM) 0.4 Absolute Eosinophils (0.0 - 0.7 /CUMM) 0.1 Absolute Basophils (0.0 - 0.2 /CUMM) 0 PUBS MCHC (33.0 - 37.0 G/DL) 34.9 Microbiology Date/Time Procedure - Status Source Growth 01/03 1216 Legionella Antigen - RES URINE ROUT 01/03 1216 Streptococcus pneumoniae Antigen (M - RES URINE ROUT 01/03 1216 Urine Culture - RES URINE ROUT 01/03 1216 Blood Culture - RES BLOOD 01/03 1214 Respiratory Culture - COLB LOWER RESP 01/03 1214 Gram Stain - COLB LOWER RESP 01/03 1213 Blood Culture - RES BLOOD Vital Signs & I&O Last 24 Hrs of Vitals and I&O: Vital Signs Date Time Temp Pulse Resp B/P Pulse O2 O2 Flow FiO2 Ox Delivery Rate 01/04 0811 96 Nasal 2.0L Cannula 01/04 0800 Nasal 2.0L Cannula 01/04 0800 98.0 87 20 108/58 95 Nasal 2.0L Cannula 01/04 0000 Nasal 2.0L Cannula 01/03 2357 98.7 105 20 116/52 96 Nasal 2.0L Cannula 01/03 1729 98.5 97 18 117/61 94 01/03 1651 93 Nasal 2.0L Cannula 01/03 1648 Nasal 2.0L Cannula 01/03 1600 Nasal 2.0L Cannula 01/03 1415 94 Nasal 2.0L Cannula Intake & Output 01/04 1600 01/04 0800 01/04 0000 Intake Total 100 Output Total 400 Balance -300 Intake, Oral 100 Output, Urine 400 Impression/Plan Impression/Plan Impression/Plan: Physical Exam General Appearance Alert, Oriented X3, Cooperative, No Acute Distress Skin No Rashes, No Breakdown HEENT Atraumatic, PERRLA, EOMI Cardiovascular Regular Rate, Normal S1, Normal S2 Lungs Normal Air Movement, faint wheezing b/l Abdomen Normal Bowel Sounds, Soft, No Tenderness Neurological Normal Speech, Strength at 5/5 X4 Ext, Normal Tone, Sensation Intact, Cranial Nerves 3-12 NL, Reflexes 2+ Extremities No Clubbing, No Cyanosis, No Edema SIGNIFICANT DATA Chest x-ray was unremarkable. No consolidation. CT scan of the chest done recently did show that she has severe emphysema. No suspicious lung nodules scattered mucous seen in the airway with significant atherosclerosis of the coronary arteries, fatty liver, previous patchy groundglass opacities had resolved. Previous CTA of the chest was unremarkable for any pulmonary embolism. Her blood work was reviewed as noted. White count 4.3 with no significant left shift. Her d-dimer was normal. Previous ABG did not reveal hypercarbia. IMPRESSION This is a lady with very end-stage COPD with more than [id number] smoking history. Recently he has quit, hypertension, B12 deficiency, asthmatic component to her obstructive lung disease, hyperlipidemia, previous interstitial opacity bilaterally most likely related to pneumonia which is now resolved, comes in with acute onset of shortness of breath, wheezing, sputum production, consistent with acute COPD exacerbation. Issues include * Acute COPD exacerbation. Improved * Severe emphysema. * Previous history of significant smoking and no evidence of malignancy in the recent CAT scan. * No evidence suggestive of pulmonary embolism. * Probable viral bronchitis. No evidence suggestive of acute bacterial infection. * Hypertension, hyperlipidemia, GERD, stable. RECOMMENDATION * Continue [id number] nebulizer. * Keep the head of bed elevated. * Continue her outpatient inhalers. Patient Symbicort could be held temporarily while she is here. * Prednisone 60 mg and taper in 8 days * Continue antibiotics with azithromycin for 5 day duration. * Ambulate. * Try to wean the oxygen off if possible. * Keep the O2 sat 92-93%. Patient seems to have improved significantly since she has been in the emergency room OK to dc soon
[2017-01-04 15:41] VITALS: BP 116/72
[2017-01-04] MEDS ORDERED: PREDNISONE10 M2 PO (16:39)
[2017-01-04 23:53] VITALS: BP 116/64
--- NOTE | 2017-01-05 08:03 | PN- Housestaff ---
See Addendum Subjective Follow-up For: COPD exacerbation Subjective: Patient seen and examined at bedside this AM. She reports she had an intense, 10 /10 headache last night that prevented her from having a sound sleep and she remarked that she only had about 3 hours total of rest. Patient is slightly concerned about a potential discharge today due to the fact that whenever she ambulates, her respiratory status declines and she notes sibsequent tachycardia. Review of Systems Constitutional: Denies: chills, fever. EENTM: Denies: blurred vision, visual changes, hearing changes. Cardiovascular: Denies: chest pain, palpitations. Respiratory: Reports: cough, short of breath, wheezing. Gastrointestinal: Denies: abdominal pain. Genitourinary: Denies: dysuria. Musculoskeletal: Denies: back pain. Skin: Denies: change in skin color, change in hair/nails. Neurological/Psychological: Denies: confusion, headache (Resolved), numbness. Hematologic/Endocrine: Denies: bruising, bleeding. Objective Last 24 Hrs of Vital Signs/I&O Vital Signs Date Time Temp Pulse Resp B/P Pulse O2 O2 Flow FiO2 Ox Delivery Rate 01/05 0757 97 Nasal 2.0L Cannula 01/05 0000 Nasal 2.0L Cannula 01/04 2353 97.5 88 21 116/64 96 Room Air 01/04 2114 95 Nasal 2.0L Cannula 01/04 1647 96 Nasal 2.0L Cannula 01/04 1600 Nasal 2.0L Cannula 01/04 1541 97.9 81 22 116/72 95 Nasal 2.0L Cannula Intake & Output 01/05 1600 01/05 0800 01/05 0000 Intake Total 500 Output Total Balance 500 Intake, Oral 500 Physical Exam General Appearance: Alert, Oriented X3, Cooperative, No Acute Distress Skin: No Significant Lesion HEENT: Atraumatic, Mucous Membr. moist/pink Neck: Supple Lymphatic: Cervical nl Cardiovascular: Regular Rate, Normal S1, Normal S2 Lungs: Occasional wheezing appreciated, reduced air entry bilaterally. Abdomen: Normal Bowel Sounds, Soft, No Tenderness, No Hepatospenomegaly Neurological: Normal Speech, Normal Tone Extremities: No Clubbing, No Cyanosis Current Medications: Current Medications Sig/Loulou Start time Last Medication Dose Route Stop Time Status Admin Acetaminophen 650 MG Q6P PRN 01/03 1145 AC 01/03 PO 2016 Albuterol Sulfate 3 ML EVERY 4 HRS/AWAKE / 1700 AC 01/05 INH 0755 Albuterol Sulfate 2 PUF Q4-6 PRN PRN 01/03 1200 AC INH Aspirin 81 MG Q48 01/05 1000 AC PO Atorvastatin Calcium 10 MG 1700 / 1700 AC 02 PO 1741 Azithromycin 250 MG DAILY 01/03 1147 AC 01/04 PO 0951 Guaifenesin 10 ML Q6P PRN 01/03 1145 AC PO Heparin Sodium 5,000 UNIT Q8 01/03 1400 AC 01/04 (Porcine) SC 0518 Hydrochlorothiazide 12.5 MG DAILY 01/04 1000 AC 01/04 PO 0951 Ibuprofen 600 MG DAILY PRN 01/05 0815 UNVr PO Ibuprofen 400 MG ONCE ONE 01/05 0030 DC 01/05 PO 01/05 0031 0129 Montelukast Sodium 10 MG DAILY 01/04 1000 AC 01/04 PO 0951 Omeprazole 40 MG DAILY AC 01/04 0700 AC 01/05 PO 0631 Prednisone 60 MG DAILY 01/04 1000 DC 01/04 PO 0951 Tiotropium [place] 1 PUF DAILY 01/03 1200 AC 01/04 INH 0952 Orders Radiology Findings: EXAMINATION: XR PORTABLE CHEST CLINICAL INFORMATION: Shortness of breath. Evaluate for pneumonia. COMPARISON: CT scan of the chest 12/21/2016. TECHNIQUE: AP portable upright view of the chest was obtained. FINDINGS: Lungs are clear and well expanded. There is no focal consolidative disease, pleural effusion, or pneumothorax. The cardiac silhouette and upper mediastinal contours are normal. No acute osseous finding. IMPRESSION: Unremarkable examination. No consolidative disease or effusion. Assessment/Plan Assessment: Impression This is a 66-year-old lady with a significant history of end-stage COPD and prior social history of 50 pack per year cigarette smoking, history of interstitial bilateral opacity,presents with signs and symptoms suggestive of a AECOPD. #Acute hypoxic respiratory failure Likely secondary to acute exacerbation of COPD Patient continued on baseline of 2 L NC, O2 supplementation to keep levels above 90% Continue 50 mg PO prednisone today. TRC nebs as needed Pulm consult with Dr. Jacob appreciated Keep head of bed elevated Hold symbicort temporarily, resume on DC #AECOPD Will continue TRC nebs Switched to PO prednisone today Will continue azithromycin treatment Consideration for DC today, though patient does not want DC and is hoping for 1 more day inpatient #History of chronic disease Hypertension, hyperlipidemia, GERD: Wi'll continue home meds FULL CODE Problem List: 1. COPD exacerbation Pain Ratin Pain Location: n/a Pain Goal: Remain pain free Pain Plan: Ibuprofen as needed for moderate pain. Tomorrow's Labs & Rationales: None.
[2017-01-05 08:22] VITALS: BP 136/78
--- NOTE | 2017-01-05 11:55 | PN- Pulmonary ---
Subjective HPI/Critical Care Issues: She reports she had an head ache now improved Patient is slightly concerned about a potential discharge today due to the fact that whenever she ambulates, her respiratory status declines and she notes sibsequent tachycardia. Review of Systems Constitutional: Denies: chills, fever. EENTM: Denies: blurred vision, visual changes, hearing changes. Cardiovascular: Denies: chest pain, palpitations. Respiratory: Reports: cough, short of breath, wheezing. Gastrointestinal: Denies: abdominal pain. Genitourinary: Denies: dysuria. Musculoskeletal: Denies: back pain. Skin: Denies: change in skin color, change in hair/nails. Neurological/Psychological: Denies: confusion, headache (Resolved), numbness. Hematologic/Endocrine: Denies: bruising, bleeding. Objective Current Medications: Current Medications Sig/Loulou Start time Last Medication Dose Route Stop Time Status Admin Acetaminophen 650 MG Q6P PRN 01/03 1145 AC 01/03 PO 2016 Albuterol Sulfate 3 ML EVERY 4 HRS/AWAKE 01/03 1700 AC 01/05 INH 0755 Albuterol Sulfate 2 PUF Q4-6 PRN PRN 01/03 1200 AC INH Aspirin 81 MG Q48 01/05 1000 AC 01/05 PO 0916 Atorvastatin Calcium 10 MG 1700 01/03 1700 AC 01/04 PO 1741 Azithromycin 250 MG DAILY 01/03 1147 AC 01/05 PO 0917 Guaifenesin 10 ML Q6P PRN 01/03 1145 AC PO Heparin Sodium 5,000 UNIT Q8 01/03 1400 AC 01/04 (Porcine) SC 0518 Hydrochlorothiazide 12.5 MG DAILY 01/04 1000 AC 01/05 PO 0916 Ibuprofen 600 MG AT BEDTIME PRN 01/05 1015 AC PO Ibuprofen 600 MG DAILY PRN 01/05 0815 DC PO Ibuprofen 400 MG ONCE ONE 01/05 0030 DC 01/05 PO 01/05 0031 0129 Montelukast Sodium 10 MG DAILY 01/04 1000 AC 01/05 PO 0916 Omeprazole 40 MG DAILY AC 01/04 0700 AC 01/05 PO 0631 Prednisone 50 MG DAILY 01/05 1000 AC 01/05 PO 0920 Prednisone 60 MG DAILY 01/04 1000 DC 01/04 PO 0951 Tiotropium [place] 1 PUF DAILY 01/03 1200 AC 01/05 INH 0921 Vital Signs & I&O Last 24 Hrs of Vitals and I&O: Vital Signs Date Time Temp Pulse Resp B/P Pulse O2 O2 Flow FiO2 Ox Delivery Rate 01/05 0822 97.9 88 20 136/78 96 Nasal 2.0L Cannula 01/05 0800 Nasal 2.0L Cannula 01/05 0757 97 Nasal 2.0L Cannula 01/05 0000 Nasal 2.0L Cannula 01/04 2353 97.5 88 21 116/64 96 Room Air 01/04 2114 95 Nasal 2.0L Cannula 01/04 1647 96 Nasal 2.0L Cannula 01/04 1600 Nasal 2.0L Cannula 01/04 1541 97.9 81 22 116/72 95 Nasal 2.0L Cannula Intake & Output 01/05 1600 01/05 0801/05 0000 Intake Total 500 Output Total Balance 500 Intake, Oral 500 Impression/Plan Impression/Plan Impression/Plan: Physical Exam General Appearance Alert, Oriented X3, Cooperative, No Acute Distress Skin No Rashes, No Breakdown HEENT Atraumatic, PERRLA, EOMI Cardiovascular Regular Rate, Normal S1, Normal S2 Lungs Normal Air Movement, faint wheezing b/l Abdomen Normal Bowel Sounds, Soft, No Tenderness Neurological Normal Speech, Strength at 5/5 X4 Ext, Normal Tone, Sensation Intact, Cranial Nerves 3-12 NL, Reflexes 2+ Extremities No Clubbing, No Cyanosis, No Edema SIGNIFICANT DATA Chest x-ray was unremarkable. No consolidation. CT scan of the chest done recently did show that she has severe emphysema. No suspicious lung nodules scattered mucous seen in the airway with significant atherosclerosis of the coronary arteries, fatty liver, previous patchy groundglass opacities had resolved. Previous CTA of the chest was unremarkable for any pulmonary embolism. Her blood work was reviewed as noted. White count 4.3 with no significant left shift. Her d-dimer was normal. Previous ABG did not reveal hypercarbia. IMPRESSION This is a lady with very end-stage COPD with more than [id number] smoking history. Recently he has quit, hypertension, B12 deficiency, asthmatic component to her obstructive lung disease, hyperlipidemia, previous interstitial opacity bilaterally most likely related to pneumonia which is now resolved, comes in with acute onset of shortness of breath, wheezing, sputum production, consistent with acute COPD exacerbation. Issues include * Acute COPD exacerbation. Improved * Severe emphysema. * Previous history of significant smoking and no evidence of malignancy in the recent CAT scan. * No evidence suggestive of pulmonary embolism. * Probable viral bronchitis. No evidence suggestive of acute bacterial infection. * Hypertension, hyperlipidemia, GERD, stable. * Head ache last night now better per pt RECOMMENDATION * Continue [id number] nebulizer. * Continue her outpatient inhalers. Patient Symbicort could be held temporarily while she is here. * Prednisone 60 mg and taper in 8 days * Continue antibiotics with azithromycin for 5 day duration. * Ambulate OK to dc soon, If stable and headache free can go home today and follow up with me next week
[2017-01-05] MEDS ORDERED: PREDNISONE10 M2 PO (12:00)
--- NOTE | 2017-01-06 07:46 | Discharge Summary ---
Visit Information Visit Dates Admission Date: 01/03/17 Discharge Date: 01/05/17 Hospital Course Course Attending Physician: SRIDEVI COLLINS MD Primary Care Physician: GLENDY DE LA TORRE,[facility] Health Course: 66-year-old lady with a 50+ pack year smoking history who quit over 4 years ago, a history of COPD/emphysema and is supposed to use 2 L of nasal cannula continuous oxygen at home however noncompliant, history of hypertension, hyperlipidemia, GERD that presented to the emergency room complaining of acute shortness of breath. While in the emergency room she was found to be hypoxic at 77%. After nebulizer treatment and IV Solu-Medrol she felt pretty well in the emergency room however did desaturate on ambulation and was subsequently admitted to the general medicine floor. Chest x-ray on admission IMPRESSION: Unremarkable examination. No consolidative disease or effusion. Labs on admission were within normal limits Patient was admitted to general medicine floor and treated for the following- 1. COPD exacerbation- while in the emergency room she did receive IV Solu- Medrol and nebulizer treatment, this was continued on the general medicine floor , due to her rapid improvement, her steroids were changed to by mouth, she was also placed on 5 days of the azithromycin for anti-inflammatory properties, inhaler nebulizer treatment was continued. Blood urine and sputum cultures remain negative. Her respiratory status on the day of discharge was optimum, her oxygen saturations were acceptable with ambulation. She was discharged on a by mouth taper of prednisone and to complete a five-day course of azithromycin, she will follow-up with her PCP and Parth Jacob MD within 1 week of discharge. 2. Hypertension- she was continued on her home dose of antihypertensives 3. Hyperlipidemia- she was continued on her home dose of statin 4. GERD- she was continued on her home dose of PPI Allergies: Coded Allergies: Penicillins (Severe, ANAPHYLAXIS 05/25/16) Disposition Summary Disposition Principal Diagnosis: 1. COPD exacerbation Additional Diagnosis: 1. Hypertension 2. Hyperlipidemia 3. GERD Discharge Disposition: home health services Discharge Instructions General Discharge Information Code Status: Full Code Patient's Diet: heart healthy Patient's Activity: as tolerated Follow-Up Instructions/Appts: 1. Follow-up with your PCP within one week of discharge 2. Follow-up with your travel sales consultant Parth Jacob MD within 1 week of discharge Medications at Discharge Discharge Medications: Continue taking these medications: Hydrochlorothiazide (Hydrochlorothiazide) 12.5 MG CAPSULE 1 Capsule ORAL DAILY Qty = 90 Comments: Last Taken: 01/05/17 Time: 0900 AM Montelukast Sodium (Montelukast Sodium) 10 MG TABLET 1 Tablet ORAL DAILY Qty = 90 Comments: Last Taken: 01/05/17 Time: 0900 AM Simvastatin (Simvastatin*) 10 MG TABLET 1 Tablet ORAL Every night Qty = 90 Comments: Last Taken: 01/04/17 Time: 5 PM Albuterol Sulfate (Proair Hfa) 8.5 GM HFA.AER.AD 2 Puff Inhale through mouth EVERY 4-6 HOURS NEEDED as needed for COPD Qty = 9 Comments: NOT GIVEN IN HOSPITAL Budesonide/Formoterol Fumarate (Symbicort 160-4.5 Mcg Inhaler) 10.2 GM HFA.AER.AD 2 Puff Inhale through mouth TWICE DAILY Days = 30 Comments: NOT GIVEN IN HOSPITAL Tiotropium [place] (Spiriva) 18 MCG CAP.W.DEV 1 Capsule Inhale through mouth DAILY Qty = 30 Comments: Last Taken: 01/05/17 Time: 0900 AM Aspirin (Aspirin*) 81 MG TAB.CHEW 1 Tablet ORAL EVERY 48 HOURS (Every 2 days) Days = 30 Comments: Last Taken: 01/05/17 Time: 0900 AM Esomeprazole (Nexium) 40 MG CAPSULE.DR 1 Capsule ORAL DAILY Days = 30 Comments: NOT GIVEN IN HOSPITAL Azithromycin (Zithromax) 250 MG TABLET 1 Tablet ORAL EVERY 48 HOURS (Every 2 days) Days = 30 Instructions: RESTART ON 01/08/17 Comments: Last Taken: 01/05/17 Time: 0900 AM Start taking the following new medications: Prednisone (Prednisone) 10 MG TABLET 0 ORAL TAPER Qty = 30 No Refills Instructions: On Take 01/06-01/07 50 MG 01/08-01/09 40 MG 01/10-01/11 30 MG 01/12-01/13 20 mg 01/14-01/15 10 mg THEN STOP Then Stop Comments: Last Taken: 01/05/17 Time: 0900 AM Azithromycin (Azithromycin) 250 MG TABLET 1 Tablet ORAL DAILY Qty = 3 No Refills Instructions: LAST DOSE ON 01/07/17 Copies To: ARTEMIO PIKE MD
== END 2017-01-05 13:30 | DRG 140 ==
LOC: ENRESERVDT → ENRESERVTM → ERH 07:47 → 2NB 11:40 → ENPENDDIS 11:40 → ERHI 11:40 → 2NB 13:19
PROVIDERS: Emergency Medicine; Internal Medicine; ADMIT Internal Medicine
DX: J44.1 Chronic obstructive pulmonary disease with (acute) exacerbation (principal); J96.01 Acute respiratory failure with hypoxia; Z87.891 Personal history of nicotine dependence; K21.9 Gastro-esophageal reflux disease without esophagitis; I10 Essential (primary) hypertension; E78.5 Hyperlipidemia, unspecified; E53.0 Riboflavin deficiency; J20.8 Acute bronchitis due to other specified organisms; Z99.81 Dependence on supplemental oxygen
CPT/HCPCS: 2NBSP; 36415; 81003; 82436; 87040; 87070; 87086; 87449; 87450; 87804; 87804-59; 93005; 93010; 96374; J0456; J1644; J2930; J3490

== ENCOUNTER 2018-08-25 07:54 | Emergency (ER) | payer OTHER, MEDICARE ==
[~2018-08-25] VITALS: Ht 162.6 cm; Wt 64.4 kg
[~2018-08-25 07:54] MED LIST changes: +ASPIRIN81 M4 PO; +AZITHROMYCIN250 M1 PO; +DOXYCYCLINE HY100 M4 PO; +NEXIUM40 M1 PO; +PREDNISONE50 M1 PO; +VITAMIN B-121000 MC3 PO; +VITAMIN D1000 UNIT PO; +ZITHROMAX250 M2 PO
--- NOTE | 2018-08-25 08:39 | ED DYSPNEA/ASTHMA COMPLAINT ---
History of Present Illness General Chief Complaint: Dyspnea (COPD, CHF, Other) Stated Complaint: SOB,CHEST PAIN Source: patient Exam Limitations: no limitations Allergies Coded Allergies: Penicillins (Severe, ANAPHYLAXIS 05/25/16) Sulfa (Sulfonamide Antibiotics) (UNKNOWN 08/25/17) Reconcile Medications Albuterol Sulfate (Proair Hfa) 8.5 GM HFA.AER.AD 2 PUF INH Q4-6 PRN PRN COPD (Reported) Aspirin (Aspirin*) 81 MG TAB.CHEW 1 TAB PO Q48 BLOOD THINNER (Reported) Azithromycin (Zithromax) 250 MG TABLET 1 TAB PO Q48 COPD (Reported) RESTART ON 01/08/17 Budesonide/Formoterol Fumarate (Symbicort 160-4.5 Mcg Inhaler) 10.2 GM HFA.AER.AD 2 PUF INH BID COPD Cholecalciferol (Vitamin D3) (Vitamin D) 1,000 UNIT TABLET 1 TAB PO DAILY VITAMIN SUPPORT (Reported) Cyanocobalamin (Vitamin B-12) 1,000 MCG TABLET 1 TAB PO DAILY VITAMIN SUPPORT (Reported) Esomeprazole (Nexium) 40 MG CAPSULE.DR 1 CAP PO DAILY GERD (Reported) Hydrochlorothiazide 12.5 MG CAPSULE 1 CAP PO DAILY HTN (Reported) Montelukast Sodium 10 MG TABLET 1 TAB PO DAILY COPD (Reported) Prednisone (Deltasone) 20 MG TABLET 2 TAB PO DAILY copd Simvastatin (Simvastatin*) 10 MG TABLET 1 TAB PO QPM HYPERLIPIDEMIA (Reported ) Umeclidinium Baldwin (Incruse Ellipta) 62.5 MCG/ACTUATION BLST.W.DEV 1 PUFF PO DAILY SHORTNESS OF BREATH (Reported) Triage Note: PT C/O CP/SOB SINCE FRIDAY. STATES PAIN STARTED WHILE WATCHING TV. PRODUCTIVE COUGH. PT STATES HX OF COPD. ALSO C/O FEELING ACHY ON AND OFF. O2 SAT 95% IN TRIAGE. STATES SHE FEELS LIKE SHE CAN'T TAKE A DEEP BREATH. USES SYMBICORT AT HOME WITH SOME RELIEF Triage Nurses Notes Reviewed? yes Onset: Gradual Duration: day(s): Timing: recent history Severity: moderate HPI: 68-year-old female with history of COPD on O2 at night, hypertension presents to emergency department complaining of dyspnea on exertion, increase in cough, bilateral chest pain worsening x 2-3 days. Patient states that walking a few steps or even getting dressed make her feel short of breath which is a change from her baseline. Patient also reports bilateral chest pain, worse with inspiration, described as tightness, 5/10. Patient reports a history of this type of chest tightness with previous COPD-related exacerbations. Cough is productive of white sputum, patient reports baseline white sputum production however increase in cough frequency. The patient notes chills and malaise, intermittent body aches. She denies hemoptysis, leg swelling, recent travel/ surgery, abdominal pain, vomiting, sick contact. (Gail Murillo) Vital Signs & Intake/Output Vital Signs & Intake/Output Vital Signs Date Time Temp Pulse Resp B/P B/P Pulse O2 O2 Flow FiO2 Mean Ox Delivery Rate 08/25 1347 98.2 82 17 118/82 94 Room Air 08/25 1024 98.4 91 16 112/75 91 Room Air 08/25 0942 96 Room Air 08/25 0926 92 08/25 0811 98.1 87 20 127/89 95 Room Air (Kayley DE LA TORRE,Tom Newman) Past History Travel History Traveled to [place] past 21 day No Medical History Any Pertinent Medical History? see below for history Neurological: NONE EENT: sinusitis Cardiovascular: hypertension, HLP Respiratory: COPD Gastrointestinal: NONE Hepatic: NONE Renal: NONE Musculoskeletal: NONE Psychiatric: NONE Endocrine: BORDERLINE DIABETIC Blood Disorders: NONE Cancer(s): NONE TRANSFER PROFESSOR/Reproductive: NONE History of MRSA: No History of VRE: No History of CDIFF: No Surgical History Surgical History: non-contributory Psychosocial History Who do you live with Patient/Self Services at Home None What is your primary language [place] Tobacco Use: Quit >30 days ago ETOH Use: occasional use Illicit Drug Use: denies illicit drug use Family History Family History, If Any: MOTHER (PULMONARY FIBROSIS). FATHER (RENAL CELL CARCONIMA). Hx Contributory? No (Gail Murillo) Review of Systems Review of Systems Constitutional: Reports: see HPI. EENTM: Reports: no symptoms. Respiratory: Reports: see HPI. Cardiovascular: Reports: see HPI. GI: Reports: no symptoms. Genitourinary: Reports: no symptoms. Musculoskeletal: Reports: see HPI. Skin: Reports: no symptoms. Neurological/Psychological: Reports: no symptoms. Hematologic/Endocrine: Reports: no symptoms. Immunologic/Allergic: Reports: no symptoms. All Other Systems: Reviewed and Negative (Lauren STARK,Gail Guerrier) Physical Exam Physical Exam General Appearance: well developed/nourished, no apparent distress, alert, awake Head: atraumatic, normal appearance Eyes: Bilateral: normal appearance. Ears, Nose, Throat: normal pharynx, hearing grossly normal Neck: normal inspection, supple, full range of motion Respiratory: no respiratory distress, mildly diminished breath sounds bilaterally with faint expiratory wheezing right lower lobe, right chest wall tenderness Cardiovascular: regular rate/rhythm, normal peripheral pulses Peripheral Pulses: 2+ radial (R), 2+ radial (L) Gastrointestinal: normal bowel sounds, soft, non-tender Extremities: normal inspection, no lower extremity swelling/edema, calfs are nontender Neurologic/Psych: awake, alert, oriented x 3 Skin: intact, normal color, warm/dry Core Measures ACS in differential dx? Yes CVA/TIA Diagnosis No Sepsis Present: No Sepsis Focused Exam Completed? No (Lauren STARK,Gail Guerrier) Progress Differential Diagnosis: asthma, AMI, bronchitis, costochondritis, CHF, COPD, musculoskeletal pain, pericarditis, pulmonary embolism, pneumonia, unstable angina Diagnostic Imaging: Viewed by Me: Radiology Read. Discussed w/RAD: Radiology Read. CXR Impression: PATIENT: DENNY BLAKELY PRESENT AGE: 68 PATIENT ACCOUNT NO: [id number] : 52 LOCATION: [facility] ORDERING PHYSICIAN: Gail STARK SERVICE DATE: 08/25/18 EXAM TYPE: RAD - XRY-CHEST XRAY, TWO VIEWS EXAMINATION: XR CHEST CLINICAL INFORMATION : Dyspnea. History of COPD. COMPARISON: 08/25/2017 TECHNIQUE: 2 views of the chest were obtained. FINDINGS: The lungs are chronically hyperexpanded from emphysematous disease. No acute interstitial infiltrate, consolidation, mass or pleural effusion. Cardiac silhouette is normal in size. The hilar contours are normal. Atherosclerosis of the aorta. Bones appear diffusely osteopenic. No acute findings in the mildly degenerated thoracic spine. IMPRESSION: - Chronic pulmonary emphysema. - No acute findings compared to 08/25/2017; no evidence of pneumonia. DICTATED BY: Lai Elizondo MD DATE/TIME DICTATED:08/25/18913 SUPERVISOR NET MAKING:DEUCE DATE/TIME TRANSCRIBED:08/25/18913 CONFIDENTIAL, DO NOT COPY WITHOUT APPROPRIATE AUTHORIZATION. <Electronically signed in Other Vendor System> SIGNED BY: Lai Elizondo MD 08/25/18 0920 Initial ED EKG: sinus rhythm @78bpm, nonspecific ST changes Prior EKG: unchanged (08/25/17) (Lauren STARK,Gail Guerrier) Plan of Care: Orders Procedure Date/time Status Regular Diet 08/25 D Active TROPONIN LEVEL 08/25 1215 Complete EKG 08/25 1215 Active URINALYSIS 08/25 0855 Active TROPONIN LEVEL 08/25 0855 Complete D-DIMER 08/25 0855 Complete COMPREHENSIVE METABOLIC PANEL 08/25 0855 Complete CBC WITHOUT DIFFERENTIAL 08/25 08 Complete EKG 08/25 0755 Active Laboratory Tests 08/25/18 1234: Troponin I < 0.01 08/25/18 0913: Anion Gap 9, Estimated GFR > 60, BUN/Creatinine Ratio 32.0 H, Glucose 103 H, Calcium 9.2, Total Bilirubin 0.6, AST 30, ALT 28, Alkaline Phosphatase 66, Troponin I < 0.01, Total Protein 6.9, Albumin 4.2, Globulin 2.7, Albumin/ Globulin Ratio 1.6, D-Dimer High Sensitivty < 200, CBC w Diff NO MAN DIFF REQ, RBC 4.30, MCV 91.5, MCH 31.5 H, MCHC 34.4, RDW 13.2, MPV 7.4, Gran % 75.1, Lymphocytes % 17.6 L, Monocytes % 4.9, Eosinophils % 2.2, Basophils % 0.2, Absolute Granulocytes 4.5, Absolute Lymphocytes 1.1 L, Absolute Monocytes 0.3, Absolute Eosinophils 0.1, Absolute Basophils 0 Patient's chest x-ray is stable compared to previous studies. She has dyspnea in setting of baseline COPD, her O2 saturations at rest and with ambulation ARE similar compared to her baseline. Patient is afebrile, no leukocytosis, no change in sputum color, low suspicion for acute infectious etiology. We'll treat with prednisone and outpatient follow-up with her refrigerator mover this week. Considered pulmonary embolism however patient's has low risk factors for PE, d- dimer is negative. Patient's chest tightness described as similar to previous exacerbations of her COPD, 2 EKGs and 2 troponins are stable. Her chest pain symptoms are less likely to be cardiac in nature, likely related to her current COPD exacerbation. She has never seen a personnel representative before. We'll have patient follow-up with cardiology is out patient for baseline studies and follow -up with her refrigerator mover this week given her COPD exacerbation. Dr. Zaldivar saw and evaluated the patient and agrees with the plan of care. Patient agrees with this plan, strict return precautions given which the patient understands. (Lauren STARK,Gail Guerrier) (Kayley DE LA TORRE,Tom Newman) Departure Departure Disposition: HOME OR SELF CARE Condition: Stable Clinical Impression Primary Impression: Dyspnea Secondary Impressions: Chest pain Referrals: Chloe DE LA TORRE,Ede Aburto (PCP/Family) Rain DE LA TORRE PHD,Alejandro Cabrera Additional Instructions: Continue steroids as prescribed, begin first dose of steroids tomorrow. Follow- up with your refrigerator mover, Dr. Jacob this week. It is also recommended that he follow-up with a personnel representative through [facility], he was given the name of the personnel representative here in your paperwork. If you have any worsening symptoms please return to the hospital, including increasing shortness of breath, chest pain, feeling as though you are going to pass out, or other concerns. Please note that there might be incidental findings in your evaluation that are unrelated to the current emergency department visit. Please notify your primary care doctor about this emergency department visit in order to obtain and review all of the testing performed so that these incidental findings can be monitored as needed. If you had an x-ray performed, please understand that some fractures may not be seen on the initial set of x-rays. If your symptoms persist you might need a repeat set of x-rays to check for such a fracture. If you had a laceration evaluated, please understand that foreign bodies such as glass or wood may not be visible to the naked eye or on plain x-rays. If the wound becomes red, swollen, increasingly more painful or if there is any drainage from the wound, please have it reevaluated by a physician for the possibility of a retained foreign body. If you're unable to follow up as outlined in the discharge instructions please return to the emergency department. Thank you for choosing the [facility] Emergency Department for your care. It was a pleasure to serve you today. Departure Forms: Customer Survey General Discharge Information Prescriptions: Current Visit Scripts Prednisone (Deltasone) 2 TAB PO DAILY #10 TAB (Gail Murillo) PA/DERMATOLOGIST Co-Sign Statement Statement: ED Attending supervision documentation- [x] I saw and evaluated the patient. I have also reviewed all the pertinent lab results and diagnostic results. I agree with the findings and the plan of care as documented in the PA's/DERMATOLOGIST's documentation. [] I have reviewed the ED Record and agree with the PA's/DERMATOLOGIST's documentation. [] Additions or exceptions (if any) to the PAs/DERMATOLOGIST's note and plan are summarized below: [] (Kayley DE LA TORRE,Tom Newman) Critical Care Note Critical Care Note Critical Care Time: non-applicable (Gail Murillo)
[2018-08-25] MEDS ORDERED: INCRUSE ELLI62.5 MCG PO (09:20)
--- NOTE | 2018-08-25 09:20 | RADIOLOGY REPORT ---
EXAMINATION: XR CHEST CLINICAL INFORMATION: Dyspnea. History of COPD. COMPARISON: 08/25/2017 TECHNIQUE: 2 views of the chest were obtained. FINDINGS: The lungs are chronically hyperexpanded from emphysematous disease. No acute interstitial infiltrate, consolidation, mass or pleural effusion. Cardiac silhouette is normal in size. The hilar contours are normal. Atherosclerosis of the aorta. Bones appear diffusely osteopenic. No acute findings in the mildly degenerated thoracic spine. IMPRESSION: - Chronic pulmonary emphysema. - No acute findings compared to 08/25/2017; no evidence of pneumonia.
[2018-08-25 09:21] LABS: ABSOLUTE BASOPHIL COUNT 0 /CUMM (0.0-0.2); ABSOLUTE EOSINOPHIL COUNT 0.1 /CUMM (0.0-0.7); ABSOLUTE GRANULOCYTE CT 4.5 /CUMM (1.4-6.5); ABSOLUTE LYMPH COUNT 1.1 /CUMM (1.2-3.4); ABSOLUTE MONOCYTE COUNT 0.3 /CUMM (0.10-0.60); BASOPHIL % 0.2 % (0.0-2.0); EOSINOPHIL % 2.2 % (0-5); GRANULOCYTE % 75.1 % (42.2-75.2); HEMATOCRIT 39.4 % (37-47); MEAN CORPUSCULAR HGB 31.5 PG (27.0-31.0); MEAN CORPUSCULAR HGB CONC 34.4 G/DL (33.0-37.0); MEAN CORPUSCULAR VOLUME 91.5 FL (81.0-99.0); MEAN PLATELET VOLUME 7.4 FL (7.4-10.4); PLATELET COUNT 210 /CUMM (130-400); RBC DISTRIBUTION WIDTH 13.2 % (11.5-14.5)
[2018-08-25] MEDS ORDERED: DELTASONE20 MG PO (11:01)
[2018-08-25 13:47] VITALS: BP 118/82
== END 2018-08-25 13:52 ==
LOC: ERH 07:54
PROVIDERS: Physician Assistant
DX: R06.00 Dyspnea, unspecified (principal); R07.9 Chest pain, unspecified; R05 Cough; I10 Essential (primary) hypertension; J44.9 Chronic obstructive pulmonary disease, unspecified; R73.03 Prediabetes; Z87.891 Personal history of nicotine dependence
CPT/HCPCS: 1263; 71046; 93005; 93010